=== PATIENT | female | born 1990 | race Hispanic/Latino ===

== ENCOUNTER 2017-04-20 14:17 | Emergency (ER) | payer OTHER ==
[~2017-04-20] VITALS: Ht 165.1 cm; Wt 63.6 kg
[~2017-04-20 14:17] MED LIST: ABILIFY2 MG PO; ACID CONTROL150 MG PO; ACID REDUCER 1150 MG PO; ACID REDUCER150 MG PO; ADVAIR 250/501 DISK IH; ADVAIR 500/501 DISK IH; ADVIL,NUPRIN,M200 MG PO; ALBUTEROL SULF8.5 GM IH; ALPRAZOLAM1 MG PO; AMBIEN CR12.5 MG PO; AMBIEN10 MG PO; AMBIEN5 MG PO; AMITRIPTYLINE; AMITRIPTYLINE H10 MG PO; AMOXICILLIN500 MG PO; ARIPIPRAZOLE2 MG PO; ATARAX,VISTARIL25 MG PO; ATARAX,VISTARIL50 MG PO; ATHLETE'S FOOT71 GM TP; AUGMENTIN875 MG PO; AZITHROMYCIN250 MG1 PO; BACTROBAN OINTM22 GM TP; BENADRYL ITCH28.3 GM TP; BENTYL20 MG PO; BUSPAR30 MG PO; BUTALB-APAP-CA1 EACH PO; CARAFATE100 MG/ML PO; CELEXA20 MG PO; CELEXA40 MG PO; CIPRO500 MG PO; CITALOPRAM HBR20 MG PO; CLONAZEPAM0.5 MG PO; CLONAZEPAM1 MG PO; CYANOCOBAL1000 MCG/2 IM; DOXYCYCLINE HY100 MG PO; ELAVIL10 MG PO; ELAVIL25 MG PO; ERGOCALCIF50000 UNIT PO; EXCEDRIN EXTRA1 EACH PO; FIORICET WI1 CAPSULE PO; FIORICET,ESG1 TABLET PO; FLEXERIL10 MG PO; HALOPERIDOL2 MG PO; HYDROCODON-ACE1 EAC7 PO; INDOCIN50 MG PO; KEFLEX500 MG PO; KLONOPIN0.5 M1 PO; LEXAPRO20 MG PO; LORAZEPAM0.5 MG PO; LYRICA150 MG PO; LYRICA25 MG PO; LYRICA50 MG PO; LYRICA75 MG PO; MIRALAX17 GM PO; MOTRIN600 MG PO; NAPROSYN500 MG PO; NAPROXEN500 MG PO; NO HOME MEDS; OMEPRAZOLE40 M1 PO; PANTOPRAZOLE SO40 MG PO; PEPCID40 MG PO; PERCOCET 5/31 TABLET PO; PREDNISONE20 MG PO; PREDNISONE50 MG PO; PROAIR HFA8.5 GM IH; PROMETHAZINE HC25 M1 PO; PROPRANOLOL HC120 MG PO; PROPRANOLOL HCL20 MG PO; PROPRANOLOL HCL40 MG PO; PROPRANOLOL HCL80 MG PO; PROTONIX40 MG PO; PROVENTIL HFA6.7 GM IH; RANITIDINE HCL150 MG PO; SERTRALINE HCL50 MG PO; SINGULAIR10 MG PO; SYMBICORT60 INHALAT IH; Singulair PO; TOPAMAX PO; TOPAMAX25 MG PO; TORADOL10 MG PO; TRAMADOL HCL50 MG PO; TRAZODONE HCL50 MG PO; TYLENOL REGULA325 MG PO; TYLENOL WITH C1 EACH PO; VICODIN 5-3001 EACH PO; VISINE A.C300 DROP/1 BOTH EYES; VISTARIL25 MG PO; VYVANSE PO; VYVANSE40 MG PO; XANAX0.5 MG PO; XANAX1 MG PO; XANAX2 MG PO; ZANTAC150 MG PO; ZEBUTAL 50-3251 EACH PO; ZITHROMAX Z-PA250 MG PO; ZOFRAN ODT4 MG PO; ZOFRAN4 MG PO; ZOLPIDEM TARTRA10 MG PO; ZOLPIDEM TARTRAT5 MG PO; ZONEGRAN50 MG PO; celeXA PO
[2017-04-20 14:57] VITALS: BP 122/89
== END 2017-04-20 14:58 ==
LOC: EME 14:17
DX: T65.891A Toxic effect of other specified substances, accidental (unintentional), initial encounter (principal); R41.82 Altered mental status, unspecified; R51 Headache; R45.851 Suicidal ideations; F17.200 Nicotine dependence, unspecified, uncomplicated
CPT/HCPCS: 80048; 85027; 94640; 99281; 99285; G0480

== ENCOUNTER 2018-05-02 19:46 | Emergency (ER) | payer OTHER ==
[~2018-05-02] VITALS: Ht 165.1 cm; Wt 81.3 kg
[2018-05-02] MEDS ORDERED: KEFLEX500 MG PO (21:02)
[2018-05-02] MEDS ORDERED: TRAMADOL HCL50 MG PO (21:02)
[2018-05-02] MEDS ORDERED: MOTRIN600 MG PO (21:02)
[2018-05-02 21:30] VITALS: BP 117/83
== END 2018-05-02 21:32 | disposition home or self-care (01) ==
LOC: EME 19:46 → RME 19:46
DX: L02.31 Cutaneous abscess of buttock (principal); F17.200 Nicotine dependence, unspecified, uncomplicated
CPT/HCPCS: 87070; 87075; 87077; 87147; 87186; 87205; 99281; 99283